=== PATIENT | female | born 1960 | race Caucasian/White ===

== ENCOUNTER 2018-02-13 06:22 | Day surgery (SDC) | payer OTHER ==
[~2018-02-13 06:22] MED LIST: CEFAZOLIN 1 GM/D5W RTU 1 GM/50 ML RTUPB IV PRN
[2018-02-13] MEDS ORDERED: FENTANYL CITRATE INJ/PF 100 MCG/2 ML AMPUL ONE (06:47)
[2018-02-13] MEDS ORDERED: MIDAZOLAM 2 MG/2 ML INJ ONE (06:47)
[2018-02-13] MEDS ORDERED: LIDOCAINE 2% INJ (20 MG/ML) 20 ML MDV ONE (06:47)
[2018-02-13] MEDS ORDERED: BUPIVACAINE HCL 0.5 % INJ/PF 30 ML SDV ONE (06:48)
[2018-02-13] MEDS ORDERED: PROPOFOL INJ 200 MG/20 ML VIAL IV ONE (06:48)
[2018-02-13] MEDS ORDERED: ACETAMINOPHEN 1,000 MG/100 ML RTUPB IV ONE (08:05)
[2018-02-13] MEDS: BACITRACIN INJ 50,000 UNIT VIAL ONE ×2 (09:05)
[2018-02-13] MEDS: NORMAL SALINE INJ/PF 0.9% 10 ML SDV ONE ×2 (09:05)
[2018-02-13] MEDS: POLYMYXIN B SULFATE INJ 500000 UNIT VIAL ONE ×2 (09:05)
[2018-02-13] MEDS: BUPIVACAINE INJ/PF LIPOSOME/PF 266 MG/20 ML SDV ONE ×2 (09:24)
--- NOTE | 2018-02-13 10:19 | SURGICARE DISCHARGE SUMMARY E ---
[facility] Discharge Summary NAME: ZAINAB ARCHER AGE: 57Y ADMITTED: 02/13/2018 DISCHARGED: SURGICAL PROCEDURE: Hernandez bunionectomy with insertion of total Silastic implant, right foot. POSTOPERATIVE DIAGNOSIS: Hallux rigidus with degenerative joint disease, left foot. SURGEON: Harsha Norman DPM DEPARTMENT OF SOCIOLOGY CHAIR: Tanner Huff DPM SUMMARY: The patient was admitted to [facility] with the chief complaint of a painful first metatarsophalangeal joint on her right foot. She has had conservative therapy and a nonsteroidal anti-inflammatories and steroid injections but the pain continued whether she was in or out of shoes. The patient desired to have this problem surgically corrected. She underwent the above surgical procedure without any complications and was transferred to the recovery room. She was discharged with a surgical shoe and ice pack, postoperative instructions including no weightbearing on the surgical foot, and postoperative prescriptions for cephalexin 500 mg #4, Percocet 5/325 mg #40, Phenergan 25 mg #20. She was given a followup appointment in the doctor's office in 1 week. The patient was discharged from [facility]. DICTATING PHYSICIAN: HARSHA NORMAN D.P.M. [id number] PHY#: [id number] ID: [id number] JOB#: [id number] ACCT: [id number] cc:HARSHA NORMAN DPM > MTDD
--- NOTE | 2018-02-13 11:20 | SURGICARE OPERATIVE REPORT E ---
[facility] NAME: ZAINAB ARCHER AGE: 57Y DATE OF SURGERY: 02/13/2018 ROOM: PREOPERATIVE DIAGNOSIS: Hallux rigidus with degenerative joint disease, right foot. POSTOPERATIVE DIAGNOSIS: Hallux rigidus with degenerative joint disease, right foot. OPERATION: Hernandez bunionectomy with insertion of total Silastic implant, right foot. SURGEON: HARSHA NORMAN DPM GOLF BALL WINDER: STEPHANIE MCGUIRE DPM ANESTHESIA: Intravenous Regional and local anesthesia. PROCEDURE: Following induction of IV regional and local anesthesia, the right foot and leg was prepped and draped in the usual sterile manner. A pneumatic tourniquet was placed around the right ankle and inflated to 250 mmHg after exsanguination of the limb via Esmarch bandage. The following surgical procedure was then performed. Hernandez bunionectomy with insertion of total Silastic implant right foot. Attention was directed to the dorsal aspect of the right foot where approximately a 5 cm dorsal linear incision was made over the first metatarsophalangeal joint. The incision was deepened via sharp dissection. All bleeders were clamped and bovied and saved for purposes of hemostasis. A capsular incision was made in the same manner as the original skin incision and was made medial to the extensor hallucis longus tendon. The capsule was then reflected medially and laterally from the bone. This brought into view the hypertrophied bone on the dorsal aspect of the first metatarsal head and the medial aspect of the first metatarsal head. The first metatarsophalangeal joint was inspected and it was noted that there was erosion of the cartilage on both the base of the proximal phalanx and head of the metatarsal. The base of the proximal phalanx was osteotomized approximately 1 cm distal to the joint utilizing a [employer] sagittal saw and this was done perpendicular to the bone and resulting wedge of bone was removed in total from the wound. The hypertrophied bone on the dorsal aspect of the first metatarsal head and the medial aspect of the first metatarsal head was removed utilizing a [employer] sagittal saw. The head of the first metatarsal was osteotomized parallel to the perpendicular long axis of the bone and this was an approximately 2 mm wedge of bone that was removed utilizing a Kami sagittal saw. Utilizing a side cutting bur, a hole was reamed into both the head of the metatarsal and into the base of the proximal phalanx. Utilizing a Bev tree rasp, the head of the metatarsal and the base of the proximal phalanx were both reamed to accept an implant. Sizer's were rechecked and it was noted that 2S would be needed. Both holes were then reamed utilizing a combination of the Bev tree rasp and the hand held reamers for a 2S implant. Utilizing a combination of mixed Glamery elevators and blunt dissection, the sesamoids were freed from the plantar aspect of the first metatarsal head and also the plantar aspect of the sesamoid were freed. This allowed to ensure that the sesamoid would retract proximally. The area was then flushed with copious amounts of antibacterial saline solution. The 2S sizer was then placed across the joint. An x-ray was taken and it was noted that it was a good size for that bone and that the first metatarsophalangeal joint was in an anatomically correct position. The area was then flushed again and a 2S total Silastic implant with grommets was then placed across the joint. With the proximal end obviously into the first metatarsal and the distal aspect into the base of the proximal phalanx. The capsule was coapted and maintained utilizing simple interrupted sutures of 2-0 Vicryl. The extensor hallucis longus tendon was then lengthened by performing a nix in the tendon. They were buried from medial to the lateral aspect of the tendon at 1 cm spaces. This allowed the hallux to relax in a more plantar flexed position. The subcutaneous tissue was then coapted and maintained utilizing simple interrupted sutures of 4-0 Vicryl. Exparel 20 mL was then injected subcutaneously and around the surgical site. The skin was then coapted and maintained utilizing a running subcuticular suture of 5-0 Vicryl. The skin was then cleansed with alcohol foam. The foot was dried. Benzoin and Steri-Strips were then applied to the incision. A dry sterile dressing was then applied consisting of 4 x 4's, conform, Kerlix, and Coban. The tourniquet was removed and all digits became warm and viable. The patient was then transferred to the recovery room. DICTATING PHYSICIAN: HARSHA NORMAN D.P.M. [id number] PHY#: [id number] ID: [id number] JOB#: [id number] ACCT: [id number] cc:HARSHA NORMAN DPM > JULIANO
--- NOTE | 2018-02-13 13:03 | RADIOLOGY REPORT (SQ) ---
EXAM DESCRIPTION: NO CHG FLUORO; FOOT RIGHT 2 VIEWS COMPLETED DATE/TIME: 02/13/2018 12:48 pm REASON FOR STUDY: RT FOOT CABALLERO BUNIONECTOMY WITH IMPLANT M20.21 HALLUX RIGIDUS, RIGHT FOOT COMPARISON: None. FLUOROSCOPY TIME: 2 seconds. 1 images saved to PACS. TECHNIQUE: Intra-operative images acquired during surgical procedure to evaluate progress. NUMBER OF IMAGES: 1 image. LIMITATIONS: None. FINDINGS: Hardware at the 1st metatarsal phalangeal joint. IMPRESSION: IMAGE(S) OBTAINED DURING PROCEDURE. COMMENT: Quality ID 145: Final reports for procedures using fluoroscopy that document radiation exp osure indices, or exposure time and number of fluorographic images (if radiation exposure indices are not available) Please consult full operative report of the attending physician for description of the procedure. TECHNICAL DOCUMENTATION: JOB ID: [id number] [employer]- All Rights Reserved Reading location - IP/workstation name: [email or web address]
--- NOTE | 2018-02-13 13:03 | RADIOLOGY REPORT (SQ) ---
EXAM DESCRIPTION: NO CHG FLUORO; FOOT RIGHT 2 VIEWS COMPLETED DATE/TIME: 02/13/2018 12:48 pm REASON FOR STUDY: RT FOOT CABALLERO BUNIONECTOMY WITH IMPLANT M20.21 HALLUX RIGIDUS, RIGHT FOOT COMPARISON: None. FLUOROSCOPY TIME: 2 seconds. 1 images saved to PACS. TECHNIQUE: Intra-operative images acquired during surgical procedure to evaluate progress. NUMBER OF IMAGES: 1 image. LIMITATIONS: None. FINDINGS: Hardware at the 1st metatarsal phalangeal joint. IMPRESSION: IMAGE(S) OBTAINED DURING PROCEDURE. COMMENT: Quality ID 145: Final reports for procedures using fluoroscopy that document radiation exp osure indices, or exposure time and number of fluorographic images (if radiation exposure indices are not available) Please consult full operative report of the attending physician for description of the procedure. TECHNICAL DOCUMENTATION: JOB ID: [id number] [employer]- All Rights Reserved Reading location - IP/workstation name: [email or web address]
== END 2018-02-13 10:55 | disposition home or self-care (01) ==
LOC: SC 06:22
PROVIDERS: ATTEND Podiatrist Foot Surgery
DX: M20.21 Hallux rigidus, right foot (principal); M19.071 Primary osteoarthritis, right ankle and foot; K51.90 Ulcerative colitis, unspecified, without complications; Z79.899 Other long term (current) drug therapy
CPT/HCPCS: 28292; 73620; C1776; J2250; J3490 ×5; J0690; J3010; J2704; J0131; C9290; 01480

== ENCOUNTER → 2019-05-07 | Outpatient (CLI) | payer OTHER ==
--- NOTE | 2019-05-07 15:54 | WOMENS IMAGING REPORT ---
EXAM DESCRIPTION: BILAT SCREENING MAMMO W/CAD COMPLETED DATE/TIME: 05/07/2019 2:21 pm REASON FOR STUDY: Z12.31 SCREENING MAMMO Z12.31 ENCNTR SCREEN MAMMOGRAM FOR MALIGNANT NEOPLASM OF B RE COMPARISON: Multiple since 2013 EXAM PARAMETERS: Standard craniocaudal and mediolateral oblique views of each breast recorded using digital acquisition. Read with the assistance of CAD. .[facility] [employer] Version 9.2 LIMITATIONS: None. FINDINGS: Findings present which are benign by mammographic criteria. No suspicious masses, calcifi cations or architectural distortion. Pertinent benign findings: Benign bilateral breast parenchymal calcifications Benign mammographic findings may include one or more of the following: Smooth masses, popcorn/rim/co arse calcifications, asymmetries, post-procedure changes, and lesions with long-standing stability. IMPRESSION: BENIGN MAMMOGRAPHIC FINDINGS. BIRADS 2 BREAST DENSITY: b. There are scattered areas of fibroglandular density. BIRAD: ASSESSMENT: 2 BENIGN FINDING(S) RECOMMENDATION: ROUTINE SCREENING Please continue yearly bilateral screening mammography/tomosynthesis in April 2020 COMMENT: The patient has been notified of the results by letter per MQSA requirements. Additional no tification policies are in place for contacting patient with suspicious or incomplete findings. Quality ID #225: The [employer] recommends an annual screening mammogram for women aged 40 years or over. This facility utilizes a reminder system to ensure that all patients receive reminder letters, and/or direct phone calls for appointments. This includes reminders for routine scr eening mammograms, diagnostic mammograms, or other Breast Imaging Interventions when appropriate. Th is patient will be placed in the appropriate reminder system. TECHNICAL DOCUMENTATION: FINDING NUMBER: (1) ASSESSMENT: (1) JOB ID: [id number] [employer]- All Rights Reserved Reading location - IP/workstation name: [email or web address]
== END ==
LOC: WI 13:52
PROVIDERS: ATTEND Family Medicine
DX: Z12.31 Encounter for screening mammogram for malignant neoplasm of breast (principal)
CPT/HCPCS: 77067

== ENCOUNTER → 2020-05-10 | Outpatient (CLI) | payer BC, OTHER ==
--- NOTE | 2020-05-10 15:28 | WOMENS IMAGING REPORT ---
EXAM DESCRIPTION: BILAT SCREENING MAMMO W/CAD IMAGES COMPLETED DATE/TIME: 05/10/2020 2:32 pm REASON FOR STUDY: Z12.31 ENCOUNTER FOR SCREENING MAMMOGRAM FOR MALIGNANT NEOPLASM OF BOXNEBB15.31 E NCNTR SCREEN MAMMOGRAM FOR MALIGNANT NEOPLASM OF CHUY COMPARISON: Digital bilateral screening mammograms dated 05/07/2019, 05/09/2017 and 06/14/2016. EXAM PARAMETERS: Standard craniocaudal and mediolateral oblique views of each breast recorded using digital acquisition. Read with the assistance of CAD. [facility] [employer] Version 9.2 LIMITATIONS: None. FINDINGS: RIGHT BREAST MASSES: No suspicious masses. CALCIFICATIONS: No new or suspicious calcifications. ARCHITECTURAL DISTORTION: None. ASYMMETRY: None noted. OTHER: No other significant findings. LEFT BREAST MASSES: No suspicious masses. CALCIFICATIONS: Several new calcifications in the upper-outer quadrant - mid breast. ARCHITECTURAL DISTORTION: None. ASYMMETRY: None noted. OTHER: No other significant findings. IMPRESSION: 1. Several calcifications in the upper outer-mid quadrant Left breast. 0 Incomplete: Needs Additional Imaging Evaluation and/or prior Mammograms for Comparison. BREAST DENSITY: c. The breasts are heterogeneously dense, which may obscure small masses. BIRAD: ASSESSMENT: 0 Incomplete: Needs Additional Imaging Evaluation and/or prior Mammograms for C omparison. RECOMMENDATION: 1. Special view mammogram Left breast: spot magnification compression views and tr ue lateral view. The patient will be contacted for additional imaging. COMMENT: The patient has been notified of the results by letter per [place] requirements. Additional no tification policies are in place for contacting patient with suspicious or incomplete findings. Quality ID #225: The [employer] recommends an annual screening mammogram for women aged 40 years or over. This facility utilizes a reminder system to ensure that all patients receive reminder letters, and/or direct phone calls for appointments. This includes reminders for routine scr eening mammograms, diagnostic mammograms, or other Breast Imaging Interventions when appropriate. Th is patient will be placed in the appropriate reminder system. TECHNICAL DOCUMENTATION: FINDING NUMBER: (1) ASSESSMENT: (1) JOB ID: [id number] 2010 [employer]- All Rights Reserved Reading location - IP/workstation name: [id number]
== END ==
LOC: WI 14:13
PROVIDERS: ATTEND Family Medicine
DX: Z12.31 Encounter for screening mammogram for malignant neoplasm of breast (principal); R92.0 Mammographic microcalcification found on diagnostic imaging of breast
CPT/HCPCS: 77067

== ENCOUNTER → 2020-05-19 | Outpatient (CLI) | payer BC ==
--- NOTE | 2020-05-19 15:07 | WOMENS IMAGING REPORT ---
EXAM DESCRIPTION: LEFT DIAGNOSTIC MAMMO W/CAD IMAGES COMPLETED DATE/TIME: 05/19/2020 1:32 pm REASON FOR STUDY: R92.0 MAMMOGRAPHIC MICROCALCIFICATION FOUND ON DX IMAGING OF BRST R92.0 MAMMOGRAP HIC MICROCALCIFICATION FOUND ON DX IMAGING OF COMPARISON: 05/10/2020 EXAM PARAMETERS: True lateral and magnification views. LIMITATIONS: None. FINDINGS: BREAST LATERALITY: left MASSES: No suspicious masses. CALCIFICATIONS: Calcifications upper outer quadrant are uniform density without evidence of branching or associated mass. ARCHITECTURAL DISTORTION: None. ASYMMETRY: None noted. OTHER: No other significant findings. IMPRESSION: No evidence of malignancy. BREAST DENSITY: b. There are scattered areas of fibroglandular density. BIRAD: ASSESSMENT: 2 Benign findings. RECOMMENDATION: RECOMMENDED FOLLOW UP: Birads 1 or 2: The patient should resume routine screening . SPECIFIC INTERVENTION/IMAGING/CONSULTATION RECOMMENDED:No additional intervention/ imaging/consultati on needed at this time. COMMUNICATION:The negative/benign results were communicated to the patient. COMMENT: The patient has been notified of the results by letter per MQSA requirements. Additional no tification policies are in place for contacting patient with suspicious or incomplete findings. Quality ID #225: The [employer] recommends an annual screening mammogram for women aged 40 years or over. This facility utilizes a reminder system to ensure that all patients receive reminder letters, and/or direct phone calls for appointments. This includes reminders for routine scr eening mammograms, diagnostic mammograms, or other Breast Imaging Interventions when appropriate. Th is patient will be placed in the appropriate reminder system. TECHNICAL DOCUMENTATION: FINDING NUMBER: (1) ASSESSMENT: (1) JOB ID: [id number] 2010 [employer]- All Rights Reserved Reading location - IP/workstation name: [email or web address]
== END ==
LOC: WI 13:07
PROVIDERS: ATTEND Family Medicine
DX: R92.0 Mammographic microcalcification found on diagnostic imaging of breast (principal)
CPT/HCPCS: 77065